=== PATIENT | male | born 1970 | race Caucasian/White ===

== ENCOUNTER 2023-05-18 11:15 | Outpatient (CLI) | payer BC, SELFPAY ==
--- NOTE | ~2023-05-18 | XR_ITS ---
Clinical Indication: Chronic cough PA and lateral views of the chest: Comparison: None Findings: The lungs are clear, without evidence of focal consolidation or pleural effusion. Cardiome diastinal silhouette is within normal limits. Bones and soft tissues are unremarkable. Impression: Normal chest. Reviewed, dictated and finalized at location . Impression: Normal chest.
== END 2023-05-18 11:16 ==
PROVIDERS: PCP Family Medicine; Visit Provider Family Medicine
DX: R05.3 Chronic cough (principal)
CPT/HCPCS: 71046

== ENCOUNTER 2023-11-20 02:22 | Day surgery (SDC) | payer BC, SELFPAY ==
[2023-10-31 08:53] VITALS: BMI 19.8
[2023-11-20 12:01] VITALS: BP 147/89; PULSE 127; RESP 18; TEMP 36.2; O2SAT 100; BMI 18.9
[2023-11-20] MEDS: LACTATED RINGERS 1,000 ML 150 ML IV CONT (12:11)
--- NOTE | 2023-11-20 12:22 | WPDANESEPPF ---
Anes - Initial Pre Proc Eval Procedure: Operation Date: 11/20/23 13:00 Proposed Procedures p Colonoscopy - Zach Muir MD Date/Time: 11/20/23 12:22 Surgeon: Zach Muir MD Pre Op Diagnosis: Positive Cologuard Patient Data Age: 53 Gender: M Height: 1.73 m Weight: 56.6 kg Last Vital Signs Temp 97.1 F L 11/20/23 12:01 Pulse 127 H 11/20/23 12:01 Resp 18 11/20/23 12:01 BP 147/89 H 11/20/23 12:01 Pulse Ox 100 11/20/23 12:01 O2 Del Method Room Air 11/20/23 12:01 Allergies Allergy/AdvReac Type Severity Reaction Status Date / Time No Known Allergies Allergy Verified 11/20/23 12:00 Home Medications Medication Instructions Recorded Confirmed Type multivitamin 1 tablet PO DAILY 04/20/22 11/20/23 History atorvastatin 10 mg tablet 10 mg PO DAILY #90 tabs 08/14/23 11/20/23 Rx Patient hx anesthesia problems: none Family hx anesthesia problems: none Results Review: All pre-operative results and documents have been reviewed as part of the pre-operative evaluation. [facility] Past Medical History Medical History Alcohol use Erectile dysfunction GERD (gastroesophageal reflux disease) HLD (hyperlipidemia) Tobacco use Family History Family History Mother Family history of multiple sclerosis Hypertension Hyperlipidemia Father Family history of coronary artery disease Esophageal cancer Grandparent Family history of coronary artery disease Grandparent Family history of multiple sclerosis Social History Social History Smoking packs per day: 1.5 Smoking cigarettes per day: 30.0 Years smoked: 35 Smoking pack-years: 52.50 Smoking status: Current every day smoker Tobacco type: cigarettes Alcohol intake: current Drinks per week: 8 Alcohol use details: BEER Substance use: never Substance use type: does not use Living arrangements: with family Occupation/Education: occupation 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[employer]) Gender identity (if verbalized by the patient): Male Sexual Orientation (if Verbalized by the Patient): Straight or Heterosexual Spiritual care concerns: No Agree to blood products: Yes Anes - Eval Final PreProcedure Day of Procedure 11/20/23 12:22 Patient weight: normal Heart: regular rate and rhythm Lungs: clear to auscultation Airway: Mallampati scale class II Neurological: alert and oriented Last oral intake: >/= 8 hours ASA classification: II Emergent: no Anesthetic plan: proceed Anesthesia type and monitoring: general GIVS and standard monitoring Results Review: All pre-operative results and documents have been reviewed as part of the pre-operative evaluation. Hyperlipidemia, smoker 1.5 ppd for many years, smoked at 11 am. 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 Informed Consent: The patient's anesthetic plan and its attendant risks and benefits were discussed with the patient/family/POA. Questions were solicited and answers provided to the satisfaction of the patient/family/POA.
--- NOTE | 2023-11-20 13:02 | PM.HPGS ---
History of Present Illness History of Present Illness Consent: Risks, benefits, and alternatives have been discussed and questions answered. Patient agrees to proceed with procedure. Chief complaint: Positive Cologuard Narrative: Julius Caro is a 53 year old male here for first colonoscopy because + cologuard Review of Systems Review of Systems: All systems reviewed & are unremarkable except as noted in HPI and below PMFSH Past Medical History Medical History Alcohol use Erectile dysfunction GERD (gastroesophageal reflux disease) HLD (hyperlipidemia) Positive colorectal cancer screening using Cologuard test Tobacco use Family History Family History Mother Family history of multiple sclerosis Hypertension Hyperlipidemia Father Family history of coronary artery disease Esophageal cancer Grandparent Family history of coronary artery disease Grandparent Family history of multiple sclerosis Social History Social History Smoking packs per day: 1.5 Smoking cigarettes per day: 30.0 Years smoked: 35 Smoking pack-years: 52.50 Smoking status: Current every day smoker Tobacco type: cigarettes Alcohol intake: current Drinks per week: 8 Alcohol use details: BEER Substance use: never Substance use type: does not use Living arrangements: with family Occupation/Education: occupation 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[employer]) Gender identity (if verbalized by the patient): Male Sexual Orientation (if Verbalized by the Patient): Straight or Heterosexual Spiritual care concerns: No Agree to blood products: Yes Meds Home Medications and Allergies Home Medications Medication Instructions Recorded Confirmed Type multivitamin 1 tablet PO DAILY 04/20/22 11/20/23 History atorvastatin 10 mg tablet 10 mg PO DAILY #90 tabs 08/14/23 11/20/23 Rx Allergies Allergy/AdvReac Type Severity Reaction Status Date / Time No Known Allergies Allergy Verified 11/20/23 12:00 Vital Signs Vital Signs - 24 hr 11/20/23 12:01 Temperature 97.1 F L Pulse Rate 127 H Respiratory Rate 18 Blood Pressure 147/89 H Pulse Oximetry 100 Oxygen Delivery Room Air Exam Const: General: comfortable and no acute distress HENMT: Face/Nose/Sinus: Normal nares present Eyes: General: appearance normal, both eyes and all related structures Neck: Neck: no JVD Resp: Auscultation: clear to auscultation bilaterally Cardio: Rate: regular rate Rhythm: regular rhythm GI: Inspection: non-distended GI Palp: Yes Soft to palpation Skin: General skin exam: normal color Neuro: General: gait normal Speech: normal speech Extrem: General: normal to inspection Psych: Mental Status: mental status grossly normal Assessment and Plan Assessment and plan (1) Positive colorectal cancer screening using Cologuard test: Code(s): R19.5 - Other fecal abnormalities Status: Acute Assessment and Plan: colonoscopy
[2023-11-20 13:23] VITALS: BP 115/77; PULSE 92; RESP 25; O2SAT 100
[2023-11-20 13:33] VITALS: BP 116/78; PULSE 95; RESP 22; O2SAT 100
[2023-11-20 13:43] VITALS: BP 128/80; PULSE 90; RESP 22; O2SAT 99
== END 2023-11-20 13:53 | disposition home or self-care (01) ==
PROVIDERS: PCP Family Medicine; Referring Provider Physician Assistant Medical; Visit Provider Internal Medicine Gastroenterology
PROC: 0DJD8ZZ Inspection of Lower Intestinal Tract, Via Natural or Artificial Opening Endoscopic (ICD-10-PCS; CPT 45378; principal; 2023-11-20 13:00)
DX: R19.5 Other fecal abnormalities (principal); D12.2 Benign neoplasm of ascending colon; D12.5 Benign neoplasm of sigmoid colon; D12.8 Benign neoplasm of rectum; K64.8 Other hemorrhoids; K21.9 Gastro-esophageal reflux disease without esophagitis; E78.5 Hyperlipidemia, unspecified; F17.210 Nicotine dependence, cigarettes, uncomplicated
CPT/HCPCS: 45385; 88305; J2704; J7120